=== PATIENT | male | born 1965 | race Caucasian/White ===

== ENCOUNTER 2024-07-20 18:54 | Outpatient (REF) | payer MEDICARE, MEDICAID, SELFPAY ==
[2024-07-20 19:20] LABS: Hematocrit 27.7 % (42.0-54.0); Hemoglobin 8.5 g/dL (14.0-18.0); Mean Corpuscular HGB Conc 30.7 g/dL (29.9-35.2); Mean Corpuscular Hemoglobin 28.7 pg (25.9-34.0); Mean Corpuscular Volume 93.6 fL (80.0-94.0); Mean Platelet Volume 13.5 fL (9.5-13.5); Platelet Count 320 10^3/uL (150-450); Red Blood Count 2.96 10^6/uL (4.70-6.10); Red Cell Distribution Width 13.6 % (11.0-15.0); White Blood Count 14.5 10^3/uL (4.0-11.0)
== END 2024-07-20 18:55 | disposition home or self-care (01) ==
LOC: LAB 18:54
PROVIDERS: PCP Internal Medicine; Visit Provider Internal Medicine
DX: R41.0 Disorientation, unspecified (principal)
CPT/HCPCS: 36415; 85027